=== PATIENT | female | born 1980 | race Caucasian/White ===

== ENCOUNTER 2019-07-09 12:33 | Emergency (ER) | payer OTHER, SELFPAY ==
[2019-07-09 12:53] VITALS: BP 151/80; PULSE 89; RESP 18; TEMP 36.4; O2SAT 100
--- NOTE | 2019-07-09 13:08 | ED.SKABFB ---
HPI - Skin/Abscess/Foreign Bdy General Chief complaint: Skin/Abscess/Foreign Body Stated complaint: PIMPLE TO SHOULDER Time Seen by Provider: 07/09/19 12:47 Source: patient Mode of arrival: ambulatory Limitations: no limitations History of Present Illness HPI narrative: This is a 39 year old female that presents to the ER for cyst to right side of neck x 2 weeks. Reports over the last couple days the area has become red and painful. Denies fever, or drainage. Related Data Home Medications Medication Instructions Recorded Confirmed ergocalciferol (vitamin D2) 07/09/19 [Vitamin D2] gabapentin 07/09/19 hydrochlorothiazide 07/09/19 ibuprofen 07/09/19 levothyroxine 07/09/19 lorazepam 07/09/19 omeprazole 07/09/19 Allergies Allergy/AdvReac Type Severity Reaction Status Date / Time latex Allergy Itching Verified 07/09/19 12:50 sulfamethoxazole Allergy Itching Verified 07/09/19 12:50 [From Bactrim] trimethoprim [From Bactrim] Allergy Itching Verified 07/09/19 12:50 Review of Systems Review of Systems: Narrative: CONSTITUTIONAL: Denies fever SKIN: Reports cyst All systems reviewed & are unremarkable except as noted in HPI and below PMFSH Past Medical History Medical History (Updated 07/09/19 @ 13:18 by Jordana Rowe PA-C) History of gastroesophageal reflux (GERD) History of hypertension History of hypothyroidism Exam Narrative: Exam Narrative: GENERAL: Well-appearing, obese, and in no acute distress. HEAD: Normocephalic, atraumatic. EYES: EOMI. NECK: Supple. No adenopathy. Right base of neck with 2.5cm cystic lesion with mild overlying redness, no lymphangitic streaking EXTREMITIES: Normal range of motion. No edema. SKIN: Warm, dry, no rash. NEURO: No focal deficits. Alert and oriented x3. PSYCH: Normal mood and affect Course Vital Signs Vital signs: Vital Signs Temperature 97.6 F 07/09/19 12:53 Pulse Rate 89 07/09/19 12:53 Respiratory Rate 18 07/09/19 12:53 Blood Pressure 151/80 H 07/09/19 12:53 Pulse Oximetry 100 07/09/19 12:53 Temperature 97.6 F 07/09/19 12:53 Pulse Rate 89 07/09/19 12:53 Respiratory Rate 18 07/09/19 12:53 Blood Pressure 151/80 H 07/09/19 12:53 Pulse Oximetry 100 07/09/19 12:53 MDM - Skin/Abscess/Foreign Bdy MDM Narrative Medical decision making narrative: Patient presents the emergency department for cyst at the base of the neck. Mild redness overlying the cyst. Patient is afebrile and nontoxic-appearing. I offered incision and drainage of the area. Patient refused and would like to follow-up with a surgeon for this. She will be started on oral antibiotics. Patient was given warnings to return to the ER Critical Care Time Critical Care Time Critical Care Time: No Discharge Plan Discharge Clinical Impression: Cyst of neck Patient Disposition: Home, Self-Care Condition: Stable Instructions: Antibiotic Form, Cyst (ED) Additional Instructions: Return to the emergency department if you experience fever, increasing redness and swelling of your wound, or any other symptoms that are concerning to you Take antibiotics as prescribed. Warm compresses to the area three times daily. Keep the area clean with mild soap and water. Over the counter pain medication as needed Follow up with surgeon. Call to make an appointment Prescriptions: New cephalexin [Keflex] 500 mg capsule 500 mg PO Q6H 7 Days Qty: 28 RF: 0 No Action levothyroxine 137 mcg tablet RF: 0 ibuprofen 800 mg tablet RF: 0 omeprazole 40 mg capsule,delayed release(DR/EC) RF: 0 lorazepam 0.5 mg tablet RF: 0 hydrochlorothiazide 12.5 mg capsule RF: 0 gabapentin 100 mg capsule RF: 0 ergocalciferol (vitamin D2) [Vitamin D2] 1,250 mcg (50,000 unit) capsule RF: 0 Follow-up/Referrals: Franklin Stuart MD [Physician] - 3 Days PHYSICIAN NOT ON STAFF,NONSTAFF [N
== END 2019-07-09 13:50 | disposition home or self-care (01) ==
LOC: ANHED 13:13
PROVIDERS: Emergency Provider Emergency Medicine
DX: L72.3 Sebaceous cyst (principal); K21.9 Gastro-esophageal reflux disease without esophagitis; I10 Essential (primary) hypertension; E03.9 Hypothyroidism, unspecified
CPT/HCPCS: 99283

== ENCOUNTER 2019-10-03 18:59 | Emergency (ER) | payer OTHER, SELFPAY ==
--- NOTE | ~2019-10-03 | XR_ITS ---
EXAMINATION: XR lumbar spine 2-3V DATE: 10/03/2019 19:34 INDICATION: Nontraumatic chronic low back pain. TECHNIQUE: Anteroposterior and lateral views of the lumbar spine, and cone-down lateral view of the l umbosacral junction were obtained. COMPARISON: None. FINDINGS: Additional lumbosacral segment which is sacralized on the left for purposes of this report will be nu mbered L6. Alignment is normal. Vertebral body heights are normal. No fracture. Moderate disc height loss at L3-L4. Mild disc height loss at T12-L1, L2-L3 and L5 L6. Mild to moderate lower lumbar predom inant facet osteoarthritis. Mild bilateral sacroiliac osteoarthritis. IMPRESSION: 1. Mild to moderate lumbar spondylosis. Reviewed, dictated and finalized at location A.
[2019-10-03 19:07] VITALS: BP 156/95; PULSE 86; RESP 18; TEMP 36.8; O2SAT 97
--- NOTE | 2019-10-03 19:16 | ED.BACK ---
HPI - Back Pain/Injury General Chief Complaint: Back Pain/Injury Stated Complaint: back pain Time Seen by Provider: 10/03/19 19:03 Source: RN notes reviewed History of Present Illness HPI Narrative: Patient presents emergency department from home for back pain. Patient states symptoms been ongoing for the past 2 years but have worsened over the past 5 days pain is located over the bilateral lower back and radiates around to the bilateral legs patient denies any known trauma or injury denies any fevers or chills abdominal pain nausea vomiting bowel or bladder incontinence numbness or tingling of any extremities or any other symptoms of concern patient states pain is worse with movement states she has been taking ibuprofen at home with last dose at 2 PM with minimal relief Related Data Home Medications Medication Instructions Recorded Confirmed ergocalciferol (vitamin D2) 07/09/19 [Vitamin D2] gabapentin 07/09/19 hydrochlorothiazide 07/09/19 levothyroxine 07/09/19 lorazepam 07/09/19 omeprazole 07/09/19 Allergies Allergy/AdvReac Type Severity Reaction Status Date / Time latex Allergy Itching Verified 10/03/19 19:14 sulfamethoxazole Allergy Itching Verified 10/03/19 19:14 [From Bactrim] trimethoprim [From Bactrim] Allergy Itching Verified 10/03/19 19:14 Review of Systems Review of Systems: Narrative: Gen.: Denies fevers or chills ENT: Denies congestion Respiratory: Denies shortness of breath or cough CV: Denies chest pain or palpitations GI: Denies abdominal pain nausea, emesis or diarrhea denies incontinence Musculoskeletal: see HPI Neuro: Denies numbness, tingling, weakness or focal weakness Skin: Denies rash Except as documented, all other systems reviewed and negative [facility] Past Medical History Medical History Anxiety History of gastroesophageal reflux (GERD) History of hypertension History of hypothyroidism Hx of bronchitis Numbness of legs Social History Social History Smoking status: Former smoker Tobacco type: cigarettes Alcohol intake: current Gender identity (if verbalized by the patient): Female Exam Narrative: Exam Narrative: APPEARANCE: No acute distress, nontoxic, resting in bed Eyes: EOMI HEENT: Normocephalic, atraumatic, CV: Regular rate and rhythm without murmur RESPIRATORY: No respiratory distress. Clear to auscultation bilaterally. Abdomen: Obese, soft and nontender, no rebound or guarding MUSCULOSKELETAl: Moves all extremities, no clubbing cyanosis or edema Back: No midline lumbar tenderness to palpation or step-off, tender to palpation over bilateral paravertebral muscles L3-5 , pain increased with forward flexion NEURO: Awake and alert. Following commands, speech normal, no focal deficits, muscle strength 5 out of 5 bilateral lower extremities, bilateral patellar reflex 2+ SKIN:: Warm, dry. Normal Color no rash or lesions Course Course Emergency Course: Discussed with patient results of x-rays. Discussed outpatient treatment and need for follow-up with PCP if back continues to bother may need for MRI. Discussed with patient I plan on ibuprofen and muscle relaxers for pain control. The patient requesting [place] for pain. Discussed that narcotic pain medication is not the best option for long-term pain and need for follow-up with PCP Discussed with patient results of workup and diagnosis. Discussed need for follow-up with primary care, proper use of medication, and reasons to return to the emergency department. Patient understands and agrees to current treatment plan. Patient has ibuprofen 800 mg tablets at home currently Vital Signs Vital signs: Vital Signs Temperature 98.2 F 10/03/19 19:07 Pulse Rate 86 10/03/19 19:07 Respiratory Rate 18 10/03/19 19:07 Blood Pressure 156/95 H 10/03/19 19:07 Pulse Oximetry 97 10/03/19 19:07
[2019-10-03] MEDS: MORPHINE SULFATE 4 MG/ML INJ IM (19:21)
[2019-10-03 20:09] VITALS: BP 134/79; PULSE 100; RESP 18; TEMP 36.8; O2SAT 100
== END 2019-10-03 20:12 | disposition home or self-care (01) ==
PROVIDERS: Emergency Provider Emergency Medicine
DX: M54.5 Low back pain (principal); F41.9 Anxiety disorder, unspecified; K21.9 Gastro-esophageal reflux disease without esophagitis; E03.9 Hypothyroidism, unspecified; Z87.891 Personal history of nicotine dependence
CPT/HCPCS: 72100; 96372; 99283; J2270